=== PATIENT | female | born 1990 | race African-American/Black ===

== ENCOUNTER 2022-08-17 08:09 | Inpatient (IN) | payer OTHER ==
[2022-08-17 10:29] LABS: BASO % 1.8 % (0-2.0); EOS % 3.3 % (0-4.5); HEMATOCRIT 19.6 % (32.4-45.2); LYMPH % 19.5 % (8-40); MCHC 29.6 g/dl (32.0-36.0); MEAN CELL VOLUME 57.4 fl (80-96); MEAN PLT VOLUME 6.5 fl (7.5-11.1); MONO % 6.4 % (3.8-10.2); PLATELET COUNT 557 10^3/uL (134-434); RBC 3.41 M/mm3 (3.60-5.2); WHITE BLOOD COUNT 6.3 K/mm3 (4.0-10.0)
[2022-08-17 10:38] LABS: HEMOGLOBIN 5.8 GM/dL (10.7-15.3)
[2022-08-17 10:44] LABS: CALCIUM 8.7 mg/dL (8.5-10.1)
[2022-08-17 10:45] LABS: ALBUMIN 3.2 g/dl (3.4-5.0); BLOOD UREA NITROGEN 10.5 mg/dL (7-18)
[2022-08-17 10:48] LABS: CREATININE 0.7 mg/dL (0.55-1.3)
[2022-08-17 10:50] LABS: BILIRUBIN,TOTAL 0.2 mg/dL (0.2-1); TOT PROT 7.6 g/dl (6.4-8.2)
[2022-08-17 11:01] LABS: INR 0.96 (0.83-1.09)
[2022-08-17 11:03] LABS: ACTIVATED PTT 25.9 SECONDS (25.2-36.5)
[2022-08-17 11:39] LABS: ANISOCYTOSIS 3+; MACROCYTOSIS 1+
[2022-08-17] MEDS ORDERED: ACETAMINOPHEN 325 MG TABLET (FP) PO PRN (12:24)
[2022-08-17 12:32] LABS: RETICULOCYTES 2.36 % (0.5-1.5)
[2022-08-17] MEDS ORDERED: IRON SUCROSE INJECTION 200 MG in SODIUM CHLORIDE 90 ML IVPB ONE ×2 (12:37→17:00)
[2022-08-17 17:00] VITALS: RESP 18; BMI 39.6
[2022-08-17 20:21] LABS: HEMATOCRIT 22.5 % (32.4-45.2); MCHC 30.6 g/dl (32.0-36.0); MEAN CELL VOLUME 61.5 fl (80-96); MEAN PLT VOLUME 5.9 fl (7.5-11.1); PLATELET COUNT 502 10^3/uL (134-434); RBC 3.66 M/mm3 (3.60-5.2); RDW 24.9 % (11.6-15.6); WHITE BLOOD COUNT 7.9 K/mm3 (4.0-10.0)
[2022-08-17 20:22] LABS: MCH 18.8 pg (25.7-33.7)
[2022-08-17 20:23] LABS: HEMOGLOBIN 6.9 GM/dL (10.7-15.3)
[2022-08-17 21:14] LABS: EPI CELLS 10 /uL (0-25.1); HYALINE CASTS 0 /uL (0-3.1); PH,URINE 6.5 (5.0-8.0); URINE APPEARANCE CLEAR; URINE BACTERIA 318 /uL (0-1359); URINE BILIRUBIN NEGATIVE (NEGATIVE); URINE COLOR YELLOW; URINE GLUCOSE (UA) NEGATIVE (NEGATIVE); URINE KETONE NEGATIVE (NEGATIVE); URINE LEUK ESTERASE TRACE (NEGATIVE); URINE NITRITE NEGATIVE (NEGATIVE); URINE PROTEIN NEGATIVE (NEGATIVE); URINE RBC 3 /uL (0-23.9); URINE UROBILINOGEN 0.2 mg/dL (0.2-1.0); URINE WBC 19 /uL (0-25.8)
[2022-08-18 09:16] LABS: BASO % 0.9 % (0-2.0); EOS % 4.5 % (0-4.5); HEMATOCRIT 27.1 % (32.4-45.2); HEMOGLOBIN 8.7 GM/dL (10.7-15.3); MCH 20.7 pg (25.7-33.7); MCHC 31.9 g/dl (32.0-36.0); MEAN CELL VOLUME 64.9 fl (80-96); MEAN PLT VOLUME 7.8 fl (7.5-11.1); MONO % 6.3 % (3.8-10.2); NEUT % 69.3 % (42.8-82.8); PLATELET COUNT 414 10^3/uL (134-434); RBC 4.18 M/mm3 (3.60-5.2); RDW 26.3 % (11.6-15.6); WHITE BLOOD COUNT 6.3 K/mm3 (4.0-10.0)
[2022-08-18 09:43] LABS: BLOOD UREA NITROGEN 6.5 mg/dL (7-18); CALCIUM 8.9 mg/dL (8.5-10.1); MAGNESIUM 1.7 mg/dL (1.8-2.4)
[2022-08-18 09:46] LABS: CREATININE 0.7 mg/dL (0.55-1.3); PHOSPHOROUS 3.2 mg/dL (2.5-4.9)
[2022-08-18] MEDS ORDERED: MAGNESIUM SULF 50% (8.12 MEQ/2 ML-1 GM VIAL) IVPB ONE (14:26)
[2022-08-18 14:47] VITALS: BP 99/74; PULSE 87
[2022-08-18 16:54] VITALS: TEMP 98.8
== END 2022-08-18 18:09 | disposition home or self-care (01) | DRG 812 ==
LOC: JER 08:09 → JERBED 11:00 → J7W 15:57
PROVIDERS: ADMIT Internal Medicine; ATTEND Internal Medicine
PROC: 30233N1 Transfusion of Nonautologous Red Blood Cells into Peripheral Vein, Percutaneous Approach (ICD-10-PCS; principal; 2022-08-17)
DX: D50.9 Iron deficiency anemia, unspecified (principal); K21.9 Gastro-esophageal reflux disease without esophagitis; F41.9 Anxiety disorder, unspecified; E83.42 Hypomagnesemia; N92.0 Excessive and frequent menstruation with regular cycle; K58.2 Mixed irritable bowel syndrome; E66.9 Obesity, unspecified; Z68.39 Body mass index [BMI] 39.0-39.9, adult
CPT/HCPCS: 36415; 36430; 76856-TC; 80048; 80053; 81003; 82607; 82728; 82746; 83540; 83550; 83735; 84100; 84443; 84484; 85025; 85027; 85045; 85610; 85730; 86850; 86900; 86901; 86922; 93005; 93010; 99285-25; C9803-CS; J1756; P9058; U0003; U0005

== ENCOUNTER 2022-11-30 04:08 | Day surgery (SDC) | payer OTHER ==
[2022-11-23 14:54] VITALS: BMI 40.7
[~2022-11-30 04:08] MED LIST: ceFAZolin SODIUM 1 GM VIAL IVPB ONE
[2022-11-30] MEDS ORDERED: ONDANSETRON 4 MG/2 ML VIAL IVPUSH PRN ×2 (08:35→09:50)
[2022-11-30] MEDS ORDERED: ACETAMINOPHEN 500 MG TABLET (FP) PO PRN (08:35)
[2022-11-30] MEDS ORDERED: oxyCODONE HCL 5 MG TABLET PO PRN ×2 (08:35→09:50)
[2022-11-30] MEDS ORDERED: LACTATED RINGERS SOLUTION 1,000 ML IV SCH (08:45)
[2022-11-30] MEDS ORDERED: FENTANYL CITRATE/PF 50 MCG/ML VIAL ONE (08:50)
[2022-11-30] MEDS ORDERED: LIDOCAINE HCL/PF 2% SDV 5ML VIAL ONE (08:50)
[2022-11-30] MEDS ORDERED: MIDAZOLAM HCL 2 MG/2 ML SINGLE DOSE VIAL ONE (08:50)
[2022-11-30] MEDS ORDERED: PROPOFOL 40 ML ONE (08:50)
[2022-11-30] MEDS ORDERED: ONDANSETRON 4 MG/2 ML VIAL ONE (09:23)
[2022-11-30] MEDS ORDERED: DEXAMETHASONE SOD PHOSPHATE 4 MG/1 ML VIAL ONE (09:23)
[2022-11-30] MEDS ORDERED: KETOROLAC TROMETHAMINE 30 MG/1 ML VIAL ONE (09:39)
[2022-11-30] MEDS ORDERED: IBUPROFEN 800 MG/8 ML IJ IVPB PRN (09:50)
[2022-11-30] MEDS ORDERED: IBUPROFEN 600 MG TABLET (FP) PO PRN (09:50)
[2022-11-30] MEDS ORDERED: ELECTROLYTE-148 SOLN 1,000 ML IV SCH (10:00)
[2022-11-30 12:53] VITALS: BP 119/65; PULSE 85; RESP 18; TEMP 97.8
== END 2022-11-30 12:45 | disposition home or self-care (01) ==
LOC: JASU-SURG 04:08
PROVIDERS: ATTEND Obstetrics & Gynecology
PROC: 0UB98ZZ Excision of Uterus, Via Natural or Artificial Opening Endoscopic (ICD-10-PCS; principal; 2022-11-30 09:00)
DX: N92.0 Excessive and frequent menstruation with regular cycle (principal); D25.0 Submucous leiomyoma of uterus; N84.0 Polyp of corpus uteri
CPT/HCPCS: 81025; 88305-TC; 88342-TC; 94760